=== PATIENT | female | born 2000 | race Caucasian/White ===

== ENCOUNTER 2019-07-31 16:00 | Emergency (ER) | payer MEDICAID ==
[~2019-07-31] VITALS: Ht 167.6 cm; Wt 66.0 kg
[~2019-07-31 16:00] MED LIST: DIPH-423 PO; FAMO-128 PO; NO HOME MEDS; PRED20TA PO
[2019-07-31 16:10] VITALS: BP 153/86
== END 2019-07-31 17:29 | disposition home or self-care (01) ==
LOC: ER 16:00
DX: R21 Rash and other nonspecific skin eruption (principal); Z79.899 Other long term (current) drug therapy
CPT/HCPCS: 99281